=== PATIENT | female | born 1980 | race African-American/Black ===

== ENCOUNTER 2020-07-25 09:16 | Emergency (ER) | payer OTHER ==
[~2020-07-25] VITALS: Ht 154.9 cm; Wt 59.0 kg
[2020-07-25 09:27] VITALS: BP 119/70
[2020-07-25 09:36] VITALS: BP 119/70
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
[2020-07-25] MEDS ORDERED: Morphine Sulfate 2mg/ml Inj(IV/IM USE ONLY) IM ONE (09:45)
[2020-07-25] MEDS ORDERED: LIDODERM700 M1 TOPIC (10:39)
[2020-07-25] MEDS ORDERED: ROBAXIN-750750 MG PO (10:39)
--- NOTE | 2020-07-25 10:46 | NUR ---
ER DISCHARGE NOTE: Patient is cleared to be discharged per ERMD, pt is aox4, on room air, with stable vital signs. pt was given dc and prescription instructions, pt was able to verbalize understanding, arm sling placed on pt's left arm. pt is able to ambulate with steady gait. pt took all belongings.
--- NOTE | 2020-07-25 11:02 | Diagnostic Imaging Report ---
EXAM: XR Left Shoulder, 3 Views CLINICAL HISTORY: INJ TECHNIQUE: Frontal internal and external rotation views and scapular Y view of the left shoulder. COMPARISON: No relevant prior studies available. FINDINGS: Bones/joints: Unremarkable. Normal alignment is seen at the acromioclavicular and glenohumeral joints. No visible displaced fracture or dislocation. No osseous erosions. Coracoclavicular and subacromial spaces appear within normal limits. The clavicle and scapula appear intact. Partial visualization of internal fixation hardware overlying the left humerus diaphysis. Soft tissues: Unremarkable. IMPRESSION: 1. No acute fracture or dislocation seen in the left shoulder. 2. Partial visualization of internal fixation hardware overlying the left humerus diaphysis.
== END 2020-07-25 10:47 | disposition home or self-care (01) ==
LOC: EMR 09:22
DX: M25.512 Pain in left shoulder (principal); J44.9 Chronic obstructive pulmonary disease, unspecified; J45.909 Unspecified asthma, uncomplicated; Z88.5 Allergy status to narcotic agent; Z88.0 Allergy status to penicillin; Z88.1 Allergy status to other antibiotic agents; V43.62XA Car passenger injured in collision with other type car in traffic accident, initial encounter; Y92.411 Interstate highway as the place of occurrence of the external cause
CPT/HCPCS: 73030; 96372; J2270; Z7502; 99283